=== PATIENT | male | born 1970 | race Asian ===

== ENCOUNTER 2022-12-26 08:53 | Emergency (ER) | payer OTHER ==
[~2022-12-26] VITALS: Ht 170.2 cm; Wt 72.6 kg
[2022-12-26 08:55] VITALS: BP_SYST 147
[2022-12-26] MEDS ORDERED: ACETAMINOPHEN 500 MG TABLET PO ONE (09:45)
[2022-12-26] MEDS ORDERED: IBUP-1970 PO (10:31)
[2022-12-26] MEDS ORDERED: ACET-2634 PO (10:31)
[2022-12-26 11:20] VITALS: BP_SYST 147
== END 2022-12-26 11:21 | disposition home or self-care (01) ==
LOC: SED 08:53
DX: S13.4XXA Sprain of ligaments of cervical spine, initial encounter (principal); R51.9 Headache, unspecified; I10 Essential (primary) hypertension; Z79.899 Other long term (current) drug therapy; V49.40XA Driver injured in collision with unspecified motor vehicles in traffic accident, initial encounter; Y93.89 Activity, other specified; Y92.89 Other specified places as the place of occurrence of the external cause; Y99.8 Other external cause status
CPT/HCPCS: 70450-TC; 72125-TC; 76376; 99284